=== PATIENT | female | born 1970 | race American Indian/Alaskan Native ===

== ENCOUNTER 2016-06-09 07:57 | Emergency (ER) | payer OTHER ==
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
[2016-06-09 08:48] LABS: Bilirubin,Urine NEG (Negative); Blood,Urine NEG (Negative); Ketones,Urine NEG (Negative); Leukocyte Esterase,Urine NEG (Negative); Mucus,Urine FEW /HPF; Nitrite,Urine NEG (Negative); Protein,Urine <15 mg/dL mg/dL (Negative); Urobilinogen,Urine < 2.0 mg/dL (<2.0)
[2016-06-09] MEDS ORDERED: TORADOL IM ONE (09:19)
[2016-06-09] MEDS ORDERED: TYLENOL PO ONE (09:19)
[2016-06-09 10:57] VITALS: BP 102/60
== END 2016-06-09 11:01 | disposition home or self-care (01) ==
LOC: ED 07:57
DX: M54.5 Low back pain (principal); M54.2 Cervicalgia; V49.59XA Passenger injured in collision with other motor vehicles in traffic accident, initial encounter; Y93.89 Activity, other specified; Y99.8 Other external cause status; Y92.89 Other specified places as the place of occurrence of the external cause
CPT/HCPCS: 36415; 81001; 84702; 96372; 99283; J1885

== ENCOUNTER 2021-09-18 14:13 | Emergency (ER) | payer OTHER, MEDICAID ==
[2021-09-18 14:18] VITALS: BP 117/74
[2021-09-18] MEDS ORDERED: IBUPROFEN 600 MG TAB PO ONE (16:50)
[2021-09-18] MEDS ORDERED: ACETAMINOPHEN 500 MG TAB PO ONE (16:50)
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
== END 2021-09-18 18:26 | disposition home or self-care (01) ==
LOC: ED 14:13
DX: S09.90XA Unspecified injury of head, initial encounter (principal); M62.830 Muscle spasm of back; M54.50 Low back pain, unspecified; M62.838 Other muscle spasm; M54.2 Cervicalgia; E78.00 Pure hypercholesterolemia, unspecified; Z79.899 Other long term (current) drug therapy; V87.7XXA Person injured in collision between other specified motor vehicles (traffic), initial encounter; Y93.89 Activity, other specified; Y92.488 Other paved roadways as the place of occurrence of the external cause; Y99.8 Other external cause status
CPT/HCPCS: 70450; 72100; 72125; 99284